=== PATIENT | male | born 1945 | race Caucasian/White ===

== ENCOUNTER 2021-11-15 10:42 | Observation (INO) ==
[2021-11-15] MEDS ORDERED: Melatonin 3 MG TABLET PO PRN (11:08)
[2021-11-15] MEDS ORDERED: Naloxone 0.4 MG/ML INJ IVP PRN (11:08)
[2021-11-15] MEDS ORDERED: *HR* Heparin 5,000 UNIT/ML VIAL IVP PRN ×4 (11:09→13:20)
[2021-11-15] MEDS ORDERED: *HR* Heparin 5,000 UNIT/ML VIAL IVP ONE (11:09)
[2021-11-15] MEDS ORDERED: Heparin 25,000UNIT/250ML 1/2NS 25,000 UNIT/250 ML IV.SOLN IVC SCH ×4 (11:15→13:30)
[2021-11-15 11:46] LABS: INR 1.4
[2021-11-15 11:48] LABS: Activated Partial Thrombo Time 37.5 Seconds (26.0-36.0)
[2021-11-15 11:50] LABS: Heparin anti-factor XA UFH 1.74 IU/mL (0.30-0.70)
[2021-11-15 15:32] VITALS: BP 132/83; PULSE 77; TEMP 98.1; O2SAT 96
[2021-11-15] MEDS ORDERED: Perflutren Lipid Microsphere 1.3 ML in 0.9 % Sodium Chloride 8.7 ML IVP PRN (16:24)
[2021-11-16] MEDS ORDERED: Apixaban 5 MG TABLET PO SCH (09:00)
== END 2021-11-15 17:27 | disposition left against medical advice (07) ==
LOC: 3ANU 10:42 → EMEROOARM 10:42 → 3ANU 12:22
PROVIDERS: ADMIT Internal Medicine; ATTEND Internal Medicine